=== PATIENT | female | born 1955 ===

== ENCOUNTER → 2018-07-09 02:15 | Outpatient (REF) | payer OTHER, SELFPAY ==
[2018-07-09 03:53] LABS: Erythrocyte Sedimentation Rate 22 MM/HR (0-20)
== END ==
LOC: LAB 02:15
PROVIDERS: Visit Provider Naturopath
DX: M45.9 Ankylosing spondylitis of unspecified sites in spine (principal)
CPT/HCPCS: 85651; 86140